=== PATIENT | female | born 1940 | race Caucasian/White ===

== ENCOUNTER 2022-08-20 16:01 | Inpatient (IN) | payer MEDICARE ==
[2022-08-20 16:30] LABS: #Basophils 0.1 thou/uL (0.0-0.2); #Eosinphils 0.2 thou/uL (0.0-0.7); #Monocytes 0.5 thou/uL (0.11-0.59); #Neutrophils 5.3 thou/uL (1.40-6.50); %Basophils 1.1 % (0.0-1.0); %Eosinophils 2.6 % (0.0-10.0); %Monocytes 6.7 % (0.0-10.0); %Neutrophils 64.6 % (42.0-75.0); Hemoglobin 14.6 g/dL (12.0-16.0); Mean Corpuscular HGB CONC 32.6 g/dL (32.0-36.0); Mean Corpuscular Hemoglobin 31.9 pg (27.0-31.0); Mean Corpuscular Volume 98.1 fl (78.0-98.0); Mean Platelet Volume 9.4 fL (7.4-10.4); Platelet Count 153 10x3/uL (130-400); RBC Distribution Width 13.7 % (11.5-14.5); Red Blood Cell (RBC) Count 4.59 mill/uL (4.20-5.40); White Blood Cell (WBC) Count 8.1 10x3/uL (4.8-10.8)
[2022-08-20 16:53] LABS: ALT (SGPT) 19 U/L (8-55); AST (SGOT) 28 U/L (5-34); Albumin 4.3 g/dL (3.4-4.8); Alkaline Phosphatase 76 U/L (40-110); Anion Gap 13 mmol/L (10-20); BUN (Urea Nitrogen) 14 mg/dL (9.8-20.1); Bilirubin, Total 1.2 mg/dL (0.2-1.2); Calc. Creatinine Clearance 0 mL/min (70-130); Calcium 9.8 mg/dL (7.8-10.44); Carbon Dioxide 24 mmol/L (23-31); Chloride 104 mmol/L (98-107); Estimated GFR 52; Globulin 2.8 g/dL (2.4-3.5); Glucose 99 mg/dL (83-110); Potassium 4.4 mmol/L (3.5-5.1); Protein, Total 7.1 g/dL (5.8-8.1); Sodium 137 mmol/L (136-145)
[2022-08-20] MEDS ORDERED: Furosemide 40 MG/4 ML VIAL ONE (17:08)
[2022-08-20] MEDS ORDERED: Potassium Chloride 20 MEQ TAB ONE (17:08)
[2022-08-20] MEDS ORDERED: Spironolactone 25 MG TAB PO SCH (17:30)
[2022-08-20] MEDS ORDERED: Ondansetron PF 4 MG/2 ML Vial IVP PRN (20:16)
[2022-08-20] MEDS ORDERED: Ondansetron ODT 4 MG TAB PO PRN (20:16)
[2022-08-20] MEDS ORDERED: Acetaminophen 325 MG TAB PO PRN (20:16)
[2022-08-20 21:15] VITALS: BMI 21.0
[2022-08-20 21:31] LABS: Digoxin 0.58 ng/mL (0.8-2.0)
[2022-08-20] MEDS ORDERED: Metoprolol Tartrate 5 MG/5 ML VIAL IVP SCH (21:32)
[2022-08-20 22:53] LABS: SARS-CoV-2 NAA Rapid Test Not Detected (NotDetected)
[2022-08-21 00:04] LABS: CKMB 1.7 ng/mL (0-6.6)
[2022-08-21] MEDS: Levothyroxine Sodium 100 MCG TAB PO SCH (05:25)
[2022-08-21] MEDS: Furosemide 20 MG/2 ML VIAL SLOW IVP SCH ×2 (05:26→13:30)
[2022-08-21 05:36] LABS: #Basophils 0.1 thou/uL (0.0-0.2); #Eosinphils 0.2 thou/uL (0.0-0.7); #Lymphocytes 2.1 thou/uL (1.20-3.40); #Monocytes 0.7 thou/uL (0.11-0.59); #Neutrophils 4.4 thou/uL (1.40-6.50); %Basophils 1.3 % (0.0-1.0); %Eosinophils 3.1 % (0.0-10.0); %Monocytes 8.7 % (0.0-10.0); %Neutrophils 58.9 % (42.0-75.0); Hemoglobin 13.6 g/dL (12.0-16.0); Mean Corpuscular HGB CONC 31.7 g/dL (32.0-36.0); Mean Corpuscular Volume 97.8 fl (78.0-98.0); Mean Platelet Volume 9.5 fL (7.4-10.4); Platelet Count 146 10x3/uL (130-400); RBC Distribution Width 13.7 % (11.5-14.5); Red Blood Cell (RBC) Count 4.38 mill/uL (4.20-5.40); White Blood Cell (WBC) Count 7.5 10x3/uL (4.8-10.8)
[2022-08-21 05:49] LABS: Anion Gap 14 mmol/L (10-20); BUN (Urea Nitrogen) 14 mg/dL (9.8-20.1); Calc. Creatinine Clearance 55 mL/min (70-130); Calcium 9.6 mg/dL (7.8-10.44); Carbon Dioxide 26 mmol/L (23-31); Chloride 104 mmol/L (98-107); Estimated GFR 76; Glucose 91 mg/dL (83-110); Magnesium 1.9 mg/dL (1.6-2.6); Potassium 3.9 mmol/L (3.5-5.1); Sodium 140 mmol/L (136-145)
[2022-08-21] MEDS ORDERED: Furosemide 40 MG/4 ML VIAL SLOW IVP SCH (06:00)
[2022-08-21] MEDS: Potassium Chloride 20 MEQ TAB PO SCH ×2 (08:07→20:19)
[2022-08-21] MEDS: Digoxin 0.125 MG TAB PO SCH (08:07)
[2022-08-21] MEDS: Spironolactone 25 MG TAB PO SCH (08:08)
[2022-08-21] MEDS: Atorvastatin Calcium 10 MG TAB PO SCH (20:20)
[2022-08-22] MEDS: Furosemide 20 MG/2 ML VIAL SLOW IVP SCH ×2 (05:19→13:13)
[2022-08-22] MEDS: Levothyroxine Sodium 100 MCG TAB PO SCH (05:19)
[2022-08-22 05:23] LABS: #Basophils 0.1 thou/uL (0.0-0.2); #Eosinphils 0.3 thou/uL (0.0-0.7); #Lymphocytes 2.4 thou/uL (1.20-3.40); #Monocytes 0.6 thou/uL (0.11-0.59); #Neutrophils 3.2 thou/uL (1.40-6.50); %Basophils 1.5 % (0.0-1.0); %Eosinophils 4.5 % (0.0-10.0); %Lymphocytes 36.5 % (21.0-51.0); %Monocytes 9.6 % (0.0-10.0); Hemoglobin 14.7 g/dL (12.0-16.0); Mean Corpuscular HGB CONC 33.2 g/dL (32.0-36.0); Mean Corpuscular Hemoglobin 32.2 pg (27.0-31.0); Mean Corpuscular Volume 97.1 fl (78.0-98.0); Mean Platelet Volume 9.1 fL (7.4-10.4); Platelet Count 148 10x3/uL (130-400); RBC Distribution Width 13.7 % (11.5-14.5); Red Blood Cell (RBC) Count 4.57 mill/uL (4.20-5.40); White Blood Cell (WBC) Count 6.6 10x3/uL (4.8-10.8)
[2022-08-22 05:45] LABS: Anion Gap 13 mmol/L (10-20); BUN (Urea Nitrogen) 19 mg/dL (9.8-20.1); Calc. Creatinine Clearance 52 mL/min (70-130); Calcium 9.5 mg/dL (7.8-10.44); Carbon Dioxide 27 mmol/L (23-31); Chloride 102 mmol/L (98-107); Digoxin 0.69 ng/mL (0.8-2.0); Estimated GFR 71; Glucose 91 mg/dL (83-110); Magnesium 1.9 mg/dL (1.6-2.6); Potassium 4.1 mmol/L (3.5-5.1); Sodium 138 mmol/L (136-145)
[2022-08-22] MEDS: Potassium Chloride 20 MEQ TAB PO SCH ×2 (08:18→21:14)
[2022-08-22] MEDS: Losartan 25 MG TAB PO SCH (08:18)
[2022-08-22] MEDS: Spironolactone 25 MG TAB PO SCH (08:18)
[2022-08-22] MEDS: Digoxin 0.125 MG TAB PO SCH (08:19)
[2022-08-22] MEDS ORDERED: Digoxin 0.5 MG/2 ML AMP SLOW IVP SCH (16:45)
[2022-08-22] MEDS: Atorvastatin Calcium 10 MG TAB PO SCH (21:14)
[2022-08-23] MEDS: Furosemide 20 MG/2 ML VIAL SLOW IVP SCH ×2 (05:06→14:26)
[2022-08-23] MEDS: Levothyroxine Sodium 100 MCG TAB PO SCH (05:06)
[2022-08-23 05:47] LABS: #Basophils 0.1 thou/uL (0.0-0.2); #Eosinphils 0.3 thou/uL (0.0-0.7); #Lymphocytes 2.4 thou/uL (1.20-3.40); #Monocytes 0.9 thou/uL (0.11-0.59); #Neutrophils 8.2 thou/uL (1.40-6.50); %Basophils 0.7 % (0.0-1.0); %Eosinophils 2.5 % (0.0-10.0); %Monocytes 7.8 % (0.0-10.0); %Neutrophils 69.1 % (42.0-75.0); Hemoglobin 15.8 g/dL (12.0-16.0); Mean Corpuscular Hemoglobin 32.1 pg (27.0-31.0); Mean Corpuscular Volume 97.2 fl (78.0-98.0); Mean Platelet Volume 8.9 fL (7.4-10.4); Platelet Count 165 10x3/uL (130-400); RBC Distribution Width 13.6 % (11.5-14.5); Red Blood Cell (RBC) Count 4.94 mill/uL (4.20-5.40); White Blood Cell (WBC) Count 11.9 10x3/uL (4.8-10.8)
[2022-08-23 06:19] LABS: Anion Gap 15 mmol/L (10-20); BUN (Urea Nitrogen) 27 mg/dL (9.8-20.1); Calc. Creatinine Clearance 44 mL/min (70-130); Carbon Dioxide 23 mmol/L (23-31); Chloride 103 mmol/L (98-107); Estimated GFR 59; Glucose 91 mg/dL (83-110); Potassium 4.3 mmol/L (3.5-5.1); Sodium 137 mmol/L (136-145)
[2022-08-23] MEDS: Spironolactone 25 MG TAB PO SCH (08:02)
[2022-08-23] MEDS: Losartan 25 MG TAB PO SCH (08:02)
[2022-08-23] MEDS: Potassium Chloride 20 MEQ TAB PO SCH ×2 (08:03→22:52)
[2022-08-23 08:57] LABS: Digoxin 1.15 ng/mL (0.8-2.0)
[2022-08-23] MEDS ORDERED: Digoxin 0.125 MG TAB PO SCH (09:00)
[2022-08-23] MEDS: Atorvastatin Calcium 10 MG TAB PO SCH (22:52)
[2022-08-24] MEDS ORDERED: CEFAZOLIN 2 GM in Sodium Chloride 0.9% 100 ML IVPB SCH (01:45)
[2022-08-24 05:03] LABS: Hemoglobin 15.7 g/dL (12.0-16.0); Mean Corpuscular HGB CONC 33.2 g/dL (32.0-36.0); Mean Corpuscular Hemoglobin 33.5 pg (27.0-31.0); Mean Platelet Volume 8.6 fL (7.4-10.4); Platelet Count 160 10x3/uL (130-400); RBC Distribution Width 13.7 % (11.5-14.5); Red Blood Cell (RBC) Count 4.69 mill/uL (4.20-5.40)
[2022-08-24 05:18] LABS: Anion Gap 14 mmol/L (10-20); BUN (Urea Nitrogen) 20 mg/dL (9.8-20.1); Calc. Creatinine Clearance 54 mL/min (70-130); Calcium 9.6 mg/dL (7.8-10.44); Carbon Dioxide 22 mmol/L (23-31); Chloride 104 mmol/L (98-107); Estimated GFR 76; Glucose 95 mg/dL (83-110); Potassium 4.2 mmol/L (3.5-5.1); Sodium 136 mmol/L (136-145)
[2022-08-24 05:42] LABS: Band 6 % (5-11); Eosinophils 2 % (0-10); Lymphocytes 12 % (21-51); MDiff Complete? YES; Macrocytosis SLIGHT = 6-15 cells (100X) (0-5/hpf); Monocytes 9 % (0-10); Neutrophil 71 % (42-75); White Blood Cell (WBC) Count 10.8 10x3/uL (4.8-10.8)
[2022-08-24] MEDS: Furosemide 20 MG/2 ML VIAL SLOW IVP SCH ×2 (05:43→13:58)
[2022-08-24] MEDS: Spironolactone 25 MG TAB PO SCH (05:44)
[2022-08-24] MEDS: Levothyroxine Sodium 100 MCG TAB PO SCH (05:49)
[2022-08-24] MEDS: Losartan 25 MG TAB PO SCH (05:49)
[2022-08-24] MEDS: Potassium Chloride 20 MEQ TAB PO SCH ×2 (05:50→21:26)
[2022-08-24] MEDS ORDERED: Digoxin 0.125 MG TAB PO SCH (09:00)
[2022-08-24] MEDS ORDERED: Iopamidol 370 76% 50 ML VIAL FS ONE (09:13)
[2022-08-24] MEDS ORDERED: CEFAZOLIN 1 GM VIAL ONE ×2 (13:22→13:45)
[2022-08-24] MEDS ORDERED: Gentamicin 80 MG/2 ML VIAL ONE (13:22)
[2022-08-24] MEDS ORDERED: Lidocaine 1% (PF) 30 ML VIAL ONE (13:22)
[2022-08-24] MEDS ORDERED: Propofol 1,000 MG/100 ML VIAL IV ONE (13:47)
[2022-08-24] MEDS ORDERED: fentaNYL PF 100 MCG/2 ML SYRINGE ONE (13:47)
[2022-08-24] MEDS ORDERED: PHENYLEPHRINE-NS 100 MCG/ML 10 ML SYRINGE ONE (14:17)
[2022-08-24] MEDS: Cephalexin 250 MG CAP PO SCH ×3 (19:14→21:26)
[2022-08-24] MEDS ORDERED: Ondansetron ODT 4 MG TAB PO PRN (20:58)
[2022-08-24] MEDS ORDERED: Ondansetron PF 4 MG/2 ML Vial IVP PRN (20:59)
[2022-08-24] MEDS ORDERED: Cephalexin 250 MG CAP PO SCH (21:00)
[2022-08-24] MEDS: Atorvastatin Calcium 10 MG TAB PO SCH (21:26)
[2022-08-25] MEDS: Furosemide 20 MG/2 ML VIAL SLOW IVP SCH ×2 (05:39→14:47)
[2022-08-25] MEDS: Levothyroxine Sodium 100 MCG TAB PO SCH (05:40)
[2022-08-25] MEDS: Digoxin 0.125 MG TAB PO SCH (07:47)
[2022-08-25] MEDS: Spironolactone 25 MG TAB PO SCH (07:48)
[2022-08-25] MEDS: Cephalexin 250 MG CAP PO SCH ×3 (07:48→20:35)
[2022-08-25] MEDS: Potassium Chloride 20 MEQ TAB PO SCH ×2 (07:49→20:34)
[2022-08-25] MEDS: Losartan 25 MG TAB PO SCH (07:49)
[2022-08-25] MEDS: Atorvastatin Calcium 10 MG TAB PO SCH (20:34)
[2022-08-25] MEDS: Acetaminophen 325 MG TAB PO PRN (22:55)
[2022-08-25] MEDS ORDERED: ALPRAZolam 0.25 MG TAB PO SCH (23:15)
[2022-08-26] MEDS: Levothyroxine Sodium 100 MCG TAB PO SCH (05:53)
[2022-08-26] MEDS: Furosemide 20 MG/2 ML VIAL SLOW IVP SCH ×2 (05:53→14:23)
[2022-08-26] MEDS: Potassium Chloride 20 MEQ TAB PO SCH ×2 (08:13→20:47)
[2022-08-26] MEDS: Acetaminophen 325 MG TAB PO PRN ×2 (08:14→20:53)
[2022-08-26] MEDS: Cephalexin 250 MG CAP PO SCH ×3 (08:14→20:47)
[2022-08-26] MEDS: Spironolactone 25 MG TAB PO SCH (08:14)
[2022-08-26] MEDS: Losartan 25 MG TAB PO SCH (08:14)
[2022-08-26] MEDS: Digoxin 0.125 MG TAB PO SCH (08:14)
[2022-08-26] MEDS: Atorvastatin Calcium 10 MG TAB PO SCH (20:47)
[2022-08-27] MEDS: Levothyroxine Sodium 100 MCG TAB PO SCH (05:38)
[2022-08-27] MEDS: Furosemide 20 MG/2 ML VIAL SLOW IVP SCH (05:42)
[2022-08-27] MEDS ORDERED: Dexmedetomidine 200 MCG/2 ML VIAL ONE (06:59)
[2022-08-27] MEDS ORDERED: fentaNYL PF 100 MCG/2 ML SYRINGE ONE (06:59)
[2022-08-27] MEDS ORDERED: Heparin 10,000 UNITS/ 10 ML VIAL ONE (07:00)
[2022-08-27] MEDS ORDERED: Lidocaine 1% (PF) 30 ML VIAL ONE (07:00)
[2022-08-27] MEDS ORDERED: DOPamine 400 MG/D5W 250 ML 250 ML ONE (07:00)
[2022-08-27] MEDS ORDERED: PROPOFOL 200 MG/20 ML VIAL ONE (08:00)
[2022-08-27] MEDS ORDERED: PHENYLEPHRINE-NS 100 MCG/ML 10 ML SYRINGE ONE (08:00)
[2022-08-27] MEDS ORDERED: ePHEDrine 50 MG/ML VIAL ONE (08:00)
[2022-08-27] MEDS ORDERED: Ondansetron PF 4 MG/2 ML Vial ONE (08:00)
[2022-08-27] MEDS ORDERED: Rocuronium Bromide 10 MG/ML (10ML VIAL) ONE (08:00)
[2022-08-27] MEDS ORDERED: SUGAMMADEX SODIUM 200 MG/2 ML VIAL ONE ×2 (09:12→09:55)
[2022-08-27] MEDS ORDERED: Promethazine HCl 25 MG/ML VIAL IM PRN (09:37)
[2022-08-27] MEDS ORDERED: Ondansetron HCl/PF 4 MG/2 ML Vial IVP PRN (09:37)
[2022-08-27] MEDS: Spironolactone 25 MG TAB PO SCH (11:06)
[2022-08-27] MEDS: Losartan 25 MG TAB PO SCH (11:06)
[2022-08-27] MEDS: Digoxin 0.125 MG TAB PO SCH (11:06)
[2022-08-27] MEDS: Cephalexin 250 MG CAP PO SCH ×3 (11:06→20:18)
[2022-08-27] MEDS: Potassium Chloride 20 MEQ TAB PO SCH ×2 (11:06→20:18)
[2022-08-27] MEDS: Acetaminophen 325 MG TAB PO PRN (20:18)
[2022-08-27] MEDS: Atorvastatin Calcium 10 MG TAB PO SCH (20:18)
[2022-08-28] MEDS: Acetaminophen 325 MG TAB PO PRN (00:04)
[2022-08-28 03:33] VITALS: TEMP 97.7
[2022-08-28] MEDS: Levothyroxine Sodium 100 MCG TAB PO SCH (05:14)
[2022-08-28] MEDS: Potassium Chloride 20 MEQ TAB PO SCH (08:17)
[2022-08-28] MEDS: Losartan 25 MG TAB PO SCH (08:17)
[2022-08-28] MEDS: Cephalexin 250 MG CAP PO SCH (08:17)
[2022-08-28] MEDS: Spironolactone 25 MG TAB PO SCH (08:18)
[2022-08-28 08:29] VITALS: BP 115/55
[2022-08-28] MEDS ORDERED: Furosemide 20 MG TAB PO SCH (09:00)
[2022-08-28] MEDS ORDERED: Potassium Chloride 10 MEQ TAB PO SCH (17:00)
[2022-08-29] MEDS ORDERED: Potassium Chloride 20 MEQ TAB PO SCH (08:00)
[2022-08-29] MEDS ORDERED: Potassium Chloride 10 MEQ TAB PO SCH (08:00)
== END 2022-08-28 10:29 | disposition home or self-care (01) | DRG 242 ==
LOC: ERS 16:01 → ERHOLD 17:40 → 2SW 21:07 → UNDODISIN 08-24 19:50
PROVIDERS: ADMIT Hospitalist; ATTEND Hospitalist
PROC: 0JH606Z Insertion of Pacemaker, Dual Chamber into Chest Subcutaneous Tissue and Fascia, Open Approach (ICD-10-PCS; 2022-08-24)
PROC: 02HK3JZ Insertion of Pacemaker Lead into Right Ventricle, Percutaneous Approach (ICD-10-PCS; 2022-08-24)
PROC: 02HL3JZ Insertion of Pacemaker Lead into Left Ventricle, Percutaneous Approach (ICD-10-PCS; 2022-08-24)
PROC: 02583ZZ Destruction of Conduction Mechanism, Percutaneous Approach (ICD-10-PCS; principal; 2022-08-27)
PROC: 02K83ZZ Map Conduction Mechanism, Percutaneous Approach (ICD-10-PCS; 2022-08-27)
PROC: B24BZZ4 Ultrasonography of Heart with Aorta, Transesophageal (ICD-10-PCS; 2022-08-27)
DX: I48.11 Longstanding persistent atrial fibrillation (principal); I50.43 Acute on chronic combined systolic (congestive) and diastolic (congestive) heart failure; J95.811 Postprocedural pneumothorax; E03.9 Hypothyroidism, unspecified; Z96.0 Presence of urogenital implants; Z96.7 Presence of other bone and tendon implants; I08.1 Rheumatic disorders of both mitral and tricuspid valves; I49.5 Sick sinus syndrome; I42.8 Other cardiomyopathies; I49.3 Ventricular premature depolarization; Y83.8 Other surgical procedures as the cause of abnormal reaction of the patient, or of later complication, without mention of misadventure at the time of the procedure; Z85.3 Personal history of malignant neoplasm of breast; Z95.818 Presence of other cardiac implants and grafts; Z86.73 Personal history of transient ischemic attack (TIA), and cerebral infarction without residual deficits; Z79.899 Other long term (current) drug therapy; Z79.890 Hormone replacement therapy; Z90.49 Acquired absence of other specified parts of digestive tract; Z90.13 Acquired absence of bilateral breasts and nipples; Z90.710 Acquired absence of both cervix and uterus; Z82.49 Family history of ischemic heart disease and other diseases of the circulatory system; Z90.89 Acquired absence of other organs
CPT/HCPCS: 33207; 33208; 36415; 71045; 80048; 80053; 80061; 80162; 82553; 83735; 83880; 84443; 84484; 85025; 87811; 93005; 93306; 93312; 93613; 93623; 93650; 93798; 96374; 97139; C1732; C1760; C1769; C1785; C1894; C1898; J0690; J1160; J1265; J1580; J1644; J1940; J2001; J2405; J2704; J3490; Q9967